=== PATIENT | female | born 1980 | race Caucasian/White ===

== ENCOUNTER 2017-01-16 20:11 | Emergency (ER) | payer BC, OTHER | END 2017-01-17 00:24 | disposition home or self-care (01) | LOC: ER 20:11 | DX: K52.9 Noninfective gastroenteritis and colitis, unspecified (principal); N20.0 Calculus of kidney; E86.0 Dehydration; R11.2 Nausea with vomiting, unspecified; R74.8 Abnormal levels of other serum enzymes; F17.200 Nicotine dependence, unspecified, uncomplicated ==